=== PATIENT | female | born 1990 | race American Indian/Alaskan Native ===

== ENCOUNTER 2017-03-16 13:22 | Emergency (ER) | payer MEDICAID ==
[2017-03-16 13:40] VITALS: BP 84/69
[2017-03-16 14:01] LABS: Basophils % (Auto) 0.8 % (0.0-1.8); Hematocrit 39.6 % (30.3-42.9); Hemoglobin 12.9 gm/dl (10.1-14.3); Mean Corpuscular HGB Conc 33 % (30-34); Mean Corpuscular Hemoglobin 27 pg (28-32); Mean Corpuscular Volume 84 fl (79-97); Platelet Count 254 K/mm3 (140-440); Red Cell Distribution Width 14.9 % (13.2-15.2); White Blood Count 4.3 K/mm3 (4.5-11.0)
[2017-03-16 14:20] LABS: Alanine Aminotransferase 21 units/L (7-56); Albumin 4.2 g/dL (3.9-5); Albumin/Globulin Ratio 1.3 %; Alkaline Phosphatase 73 units/L (35-129); Anion Gap 17 mmol/L; BUN/Creatinine Ratio 17; Blood Urea Nitrogen 12 mg/dL (7-17); Calcium 9.1 mg/dL (8.4-10.2); Carbon Dioxide 25 mmol/L (22-30); Chloride 101.9 mmol/L (98-107); Glucose 84 mg/dL (65-100); Sodium 140 mmol/L (137-145); Total Protein 7.4 g/dL (6.3-8.2)
== END 2017-03-16 14:23 | disposition left against medical advice (07) ==
LOC: ED 13:22
DX: Z53.21 Procedure and treatment not carried out due to patient leaving prior to being seen by health care provider (principal)
CPT/HCPCS: 36415; 80053; 84703; 85025; G0480; 80320